=== PATIENT | female | born 1975 | race Caucasian/White ===

== ENCOUNTER 2017-08-24 19:12 | Emergency (ER) | payer BC ==
[~2017-08-24 19:12] MED LIST: KCL10C PO; PROM25SU8 PO; Z.0.NO CURRENT MEDS; ZOFR4TAB3 SL
[2017-08-24 19:39] VITALS: BP 121/60; PULSE 82; RESP 20; TEMP 98.5; O2SAT 96
--- NOTE | 2017-08-24 19:54 | PD ---
HPI Chief Complaint: GI Complaint Time Seen by Provider: 19:44 Travel History International Travel<30 days: No Contact w/Intl Traveler<30days: No Traveled to known affect area: No History of Present Illness HPI STARTED WITH COUGH, NONPROD, NOW STARTED TO HAVE N/V EPISODES WHICH ACCORDING TO PATIENT OCCURS EVERY WINTER AT SOME POINT. PATIENT STATES NOT AROUND OTHER SICK CONTACTS, ONSET ABOUT 2 DAYS AGO, DENIES DIARRHEA/ABDPAIN/CP/SOLOMON/. PCP: DENIES PMHX: DENIES PSHX:DENIES PFSH Past Medical History High Cholesterol: Yes Diabetes: No Diminished Hearing: No Immunizations Current: Yes PNEUMOCCOCAL Vaccine (Year): 2009 LMP: TUESDAY Past Surgical History Gynecologic Surgery: Yes (RIGHT BREAST CYST REMOVAL) Social History Alcohol Use: No Tobacco Use: No Substance Use: No Allergies-Medications (Allergen,Severity, Reaction): Coded Allergies: No Known Allergies (Verified Allergy, Unknown, 08/24/17) Reported Meds & Prescriptions Reported Meds & Active Scripts Active Reported Effexor (Venlafaxine HCl) 37.5 Mg Tab 37.5 Mg PO DAILY Atorvastatin (Atorvastatin Calcium) 40 Mg Tab 40 Mg PO HS Review of Systems Except as stated in HPI: all other systems reviewed are Neg Respiratory: Positive: Cough Gastrointestinal: Positive: Nausea, Vomiting Physical Exam Narrative GENERAL: SKIN: Warm and dry. HEAD: Atraumatic. Normocephalic. EYES: Pupils equal and round. No scleral icterus. No injection or drainage. ENT: No nasal bleeding or discharge. Mucous membranes pink and moist. NECK: Trachea midline. No JVD. CARDIOVASCULAR: Regular rate and rhythm. RESPIRATORY: No accessory muscle use. Clear to auscultation. Breath sounds equal bilaterally. GASTROINTESTINAL: Abdomen soft, non-tender, nondistended. MUSCULOSKELETAL: Extremities without clubbing, cyanosis, or edema. No obvious deformities. NEUROLOGICAL: Awake and alert. No obvious cranial nerve deficits. Motor grossly within normal limits. Five out of 5 muscle strength in the arms and legs. Normal speech. PSYCHIATRIC: Appropriate mood and affect; insight and judgment normal. Data Data Last Documented VS Vital Signs Date Time Temp Pulse Resp B/P (MAP) Pulse Ox O2 Delivery O2 Flow Rate FiO2 08/24/17 20:07 16 08/24/17 19:39 98.5 82 121/60 (80) 96 Orders Orders Influenzae A/B Antigen (08/24/17 19:48) Iv Access Insert/Monitor (08/24/17 19:48) Ondansetron Inj (Zofran Inj) (08/24/17 20:00) Sodium Chlor 0.9% 1000 Ml Inj (Ns 1000 M (08/24/17 20:00) MDM Medical Decision Making Medical Screen Exam Complete: Yes Emergency Medical Condition: Yes Medical Record Reviewed: Yes Differential Diagnosis FLU V URI V PREG RELATED V DEHYDRATION V Narrative Course AFTER EVALUATION, FLU TEST IS NEGATIVE. PATIENT TOLERATED PO CHALLENGE WELL AFTER ZOFRAN AND IVF WERE GIVEN...PATIENT HAS VIRAL SYNDROME AT THIS POINT AND CLEAR LUNG SOUNDS ON REEVALUATION WELL. Diagnosis Primary Impression: VIRAL SYNDROME-VOMITING Patient Instructions: Full Liquid Diet (GEN), General Instructions, Viral Syndrome (ED) Scripts Ondansetron Odt (Zofran Odt) 4 Mg Tab 4 MG SL Q6HR Y for Nausea/Vomiting, #20 TAB 0 Refills Prov: Jose De Jesus Carlos MD 08/24/17 Disposition: 01 DISCHARGE HOME Condition: Stable Jose De Jesus Carlos MD Aug 24, 2017 19:54
[2017-08-24] MEDS ORDERED: SODIUM CHLOR 0.9% 1000 ML INJ 1,000 ML IV ONE (20:00)
[2017-08-24] MEDS ORDERED: ONDANSETRON HCL 4 MG/2 ML VIAL IV PUSH ONE ×2 (20:00→21:15)
[2017-08-24] MEDS ORDERED: ATOR40TA16 PO (20:00)
[2017-08-24] MEDS ORDERED: VENL37.5 PO (20:02)
[2017-08-24] MEDS ORDERED: ZOFR4TAB3 SL (20:33)
[2017-08-24] MEDS ORDERED: BENZ100 PO (20:53)
[2017-08-24] MEDS ORDERED: HYDROcodone 5 MG/HOMATROPINE 1.5 MG SYRUP 5 ML CUP PO ONE (21:15)
[2017-08-24 21:35] VITALS: BP 122/62; PULSE 78; RESP 18; O2SAT 98
== END 2017-08-24 21:40 | disposition home or self-care (01) ==
LOC: PHED 19:12
DX: B34.9 Viral infection, unspecified (principal); R11.10 Vomiting, unspecified
CPT/HCPCS: 87804; 96361; 96374; 96376; 99284; J2405; J7030